=== PATIENT | female | born 1940 | race Caucasian/White ===

== ENCOUNTER → 2016-08-30 | Outpatient (CLI) | payer OTHER | END | disposition home or self-care (01) | LOC: NUC 09:51 | DX: M41.86 Other forms of scoliosis, lumbar region (principal); R93.7 Abnormal findings on diagnostic imaging of other parts of musculoskeletal system; Z96.653 Presence of artificial knee joint, bilateral | CPT/HCPCS: 78315; A9503 ==

== ENCOUNTER → 2016-11-05 | Outpatient (CLI) | payer OTHER ==
[~2016-11-05] MED LIST: AZELASTINE137 MCG/0. BOTH NARES; FENOFIBRATE134 M1 PO; IBUPROFEN800 MG PO; IRON325 M1 PO; LISINOPRIL20 MG PO; PRAVACHOL40 MG PO; PRAVASTATIN SOD40 MG PO; TYLENOL WITH C1 EACH PO; ULTRAM50 MG PO; VITAMIN D32000 UNI1 PO; ZIAC 5/6.251 TABLET PO
== END | disposition home or self-care (01) ==
DX: M17.12 Unilateral primary osteoarthritis, left knee (principal); R26.2 Difficulty in walking, not elsewhere classified; M25.562 Pain in left knee; M25.662 Stiffness of left knee, not elsewhere classified; M62.81 Muscle weakness (generalized); Z74.1 Need for assistance with personal care
CPT/HCPCS: 97110 GP; 97150 GO; 97161 GP; 97165 GO; G8978 GP; G8979 GP; G8980 GP; G8987 GO; G8988 GO; G8989 GO

== ENCOUNTER 2017-02-27 23:08 | Emergency (ER) | payer OTHER ==
[~2017-02-27] VITALS: Ht 165.1 cm; Wt 74.3 kg
[~2017-02-27 23:08] MED LIST changes: +ELIQUIS2.5 MG PO; +ENDOCET 5-3251 EACH PO
[2017-02-28] MEDS ORDERED: IBUPROFEN400 MG PO (02:15)
[2017-02-28 02:41] VITALS: BP 170/100
== END 2017-02-28 02:41 | disposition home or self-care (01) ==
LOC: EME 23:08
DX: S01.81XA Laceration without foreign body of other part of head, initial encounter (principal); S01.111A Laceration without foreign body of right eyelid and periocular area, initial encounter; S80.02XA Contusion of left knee, initial encounter; W01.0XXA Fall on same level from slipping, tripping and stumbling without subsequent striking against object, initial encounter; Y92.810 Car as the place of occurrence of the external cause; Z23 Encounter for immunization; G89.29 Other chronic pain; Z96.652 Presence of left artificial knee joint; Z88.2 Allergy status to sulfonamides
CPT/HCPCS: 70450; 72125; 73564; 99281; 99285